=== PATIENT | male | born 2000 | race Caucasian/White ===

== ENCOUNTER 2018-04-14 22:33 | Emergency (ER) | payer OTHER ==
[~2018-04-14] VITALS: Ht 175.3 cm; Wt 71.7 kg
--- NOTE | 2018-04-14 23:19 | ED PSYCHIATRIC COMPLAINT ---
History of Present Illness General Chief Complaint: Psychiatric Related Complaint Stated Complaint: PT IS POSTIVE FOR SI Source: patient Exam Limitations: no limitations Vital Signs & Intake/Output Vital Signs & Intake/Output Vital Signs Date Time Temp Pulse Resp B/P B/P Pulse O2 O2 Flow FiO2 Mean Ox Delivery Rate 04/15 0633 98.0 76 18 112/71 98 04/15 0156 97.9 58 18 114/70 100 Room Air 04/14 2303 Room Air 04/14 2243 98.5 59 18 121/74 98 Room Air ED Intake and Output 04/15 0000 04/14 1200 Intake Total 0 Output Total Balance 0 Intake, Oral 0 Patient 158 lb Weight Weight Reported by Patient Measurement Method Allergies Coded Allergies: No Known Allergies (04/14/18) Triage Note: PT BROUGHT IN BY [facility] FOR +SI THOUGHTS. PT STATES HE WAS IN [facility] FOR SUBSTANCE ABUSE WITH COCAINE AND ALCOHOL ABUSE FOR THE PAST 3 YEARS. PT STATES HE HAS BEEN CLEAN AND AT [facility] FOR THE PAST 3X DAYS. PT DENIES ALCOHOL SEIZURE WITHDRAWALS. PT STATES LAST USE OF COCAINE WAS 3-4 DAYS PRIOR. VSS. PT STATES +SI THOUGHTS IN TRIAGE WITHOUT A PLAN. PT DENIES -HI. Triage Nurses Notes Reviewed? yes Onset: Abrupt Duration: day(s): Timing: recent history HPI: 04/14/18 17-year-old male presents to the emergency department for depression with suicidal ideation. The patient states that he's been having thoughts of hurting himself. He denies any plan. The onset of the symptoms have been for several days. He is currently a resident at [facility] where he is being treated for alcohol and cocaine dependence. (Chauncey Romero DO) Past History Travel History Traveled to [place] past 21 day No Medical History Any Pertinent Medical History? see below for history Neurological: NONE EENT: NONE Cardiovascular: NONE Respiratory: NONE Gastrointestinal: NONE Hepatic: NONE Renal: NONE Musculoskeletal: NONE Psychiatric: alcohol dependence, substance abuse Endocrine: NONE Surgical History Surgical History: none Psychosocial History What is your primary language Indonesian Tobacco Use: Current Daily Use Daily Tobacco Use Amount/Type: => 5 Cigarettes daily ETOH Use: alcoholic Illicit Drug Use: cocaine Family History Hx Contributory? No (Chauncey Romero DO) Review of Systems Review of Systems Constitutional: Denies: fever. EENTM: Reports: no symptoms. Respiratory: Reports: no symptoms. Cardiovascular: Reports: no symptoms. GI: Reports: no symptoms. Genitourinary: Reports: no symptoms. Musculoskeletal: Reports: no symptoms. Skin: Reports: no symptoms. Neurological/Psychological: Reports: no symptoms. Hematologic/Endocrine: Denies: bruising, bleeding. Immunologic/Allergic: Reports: no symptoms. (Chauncey Romero DO) Physical Exam Physical Exam General Appearance: well developed/nourished, alert, awake, anxious Head: atraumatic, normal appearance Eyes: Bilateral: normal appearance, PERRL, EOMI. Ears, Nose, Throat: normal pharynx, normal ENT inspection, hearing grossly normal Neck: normal inspection, supple, full range of motion Respiratory: normal breath sounds, chest non-tender, no respiratory distress Cardiovascular: regular rate/rhythm, edema Gastrointestinal: normal bowel sounds, soft, non-tender Extremities: normal range of motion Neurological/Psychiatric: no motor/sensory deficits, awake, alert, anxious Appearance/Memory/Insight: appropriate appearance Behavoir/Eye Contact/Speech: avoids eye contact, cooperative Thoughts/Hallucinations: normal thought pattern Skin: intact, normal color, warm/dry SAD PERSONS SAD PERSONS Response Value Male Sex? yes 1 Depression/Hopelessness? yes 2 Previous Attempts/Psych Care yes 1 Excessive Ethanol/Drug Use? yes 1 Single//? yes 1 Social Support? has support 0 Total 6 SAD PERSONS Done? yes (Chauncey Romero DO) Progress Differential Diagnosis: drug intoxication, drug withdrawal, DEPRESSION Plan of Care: Orders Procedure Date/time Status Heart Healthy Diet 04/15 B Active Continuous Observation Monitor 04/14 2326 Active ED CRISIS PSYCH CONSULT 04/14 2326 Active URINE DRUG SCREEN FOR ER ONLY 04/14 2319 Complete ETHANOL 04/14 2319 Complete COMPREHENSIVE METABOLIC PANEL 04/14 2319 Complete CBC WITHOUT DIFFERENTIAL 04/14 2319 Complete Current Medications Sig/Juan Luis Start time Last Medication Dose Stop Time Status Admin Fluoxetine HCl 10 MG DAILY 04/15 913 UNVr 04/15 (Prozac) 947 Buspirone HCl 5 MG BID 04/15 912 UNVr 04/15 (Buspar) 0948 Gabapentin 300 MG Q8 04/15 912 UNVr 04/15 (Neurontin) 0948 Nicotine 21 MG DAILY 04/15 900 UNVr 04/15 (Nicoderm) 0948 Laboratory Tests 04/15/18 0030: Anion Gap 6, Estimated GFR > 60, BUN/Creatinine Ratio 20.0, Glucose 97, Calcium 9.5, Total Bilirubin 0.5, AST 23, ALT 27, Alkaline Phosphatase 68, Total Protein 7.7, Albumin 4.9, Globulin 2.8, Albumin/Globulin Ratio 1.8, CBC w Diff NO MAN DIFF REQ, RBC 5.03, MCV 88.9, MCH 30.4, MCHC 34.2, RDW 13.5, MPV 7.9, Gran % 48.7, Lymphocytes % 44.0, Monocytes % 5.7, Eosinophils % 0.9, Basophils % 0.7, Absolute Granulocytes 4.4, Absolute Lymphocytes 4.0 H, Absolute Monocytes 0.5, Absolute Eosinophils 0.1, Absolute Basophils 0.1, Serum Alcohol < 10.0 04/15/18 0002: Urine Opiates Screen < 100, Methadone Screen < 40, Barbiturate Screen < 60, Ur Phencyclidine Scrn < 6.00, Amphetamines Screen < 100, U Benzodiazepines Scrn < 85, Urine Cocaine Screen < 50, Urine Cannabis Screen 9.20 (Chauncey Romero DO) Comments: Patient has been seen and evaluated by the clean rice broker. Patient is stable for discharge back to [facility]. [facility] has been contacted and they were arranging transport. (Jacek GAFFNEY,Srinivas Diaz) Departure Departure Condition: Stable Clinical Impression Primary Impression: Depression Secondary Impressions: Alcohol abuse, Cocaine abuse Departure Forms: Customer Survey General Discharge Information Comments The patient will have labs and urine screening done. Nicotine patch was provided gabapentin was given he is pending crisis evaluation. He will be signed out to Dr. Read at 7 AM (Chauncey Romero DO) Departure Disposition: ACUTE REHAB FACILITY Additional Instructions: Clear to return to the rehabilitation facility. (Jacek GAFFNEY,Srinivas Diaz)
[2018-04-15 00:47] LABS: ABSOLUTE BASOPHIL COUNT 0.1 /CUMM (0.0-0.2); ABSOLUTE EOSINOPHIL COUNT 0.1 /CUMM (0.0-0.7); ABSOLUTE GRANULOCYTE CT 4.4 /CUMM (1.4-6.5); ABSOLUTE MONOCYTE COUNT 0.5 /CUMM (0.10-0.60); BASOPHIL % 0.7 % (0.0-2.0); EOSINOPHIL % 0.9 % (0-5); GRANULOCYTE % 48.7 % (42.2-75.2); HEMATOCRIT 44.8 % (42-52); MEAN CORPUSCULAR HGB 30.4 PG (27.0-31.0); MEAN CORPUSCULAR HGB CONC 34.2 G/DL (33.0-37.0); MEAN CORPUSCULAR VOLUME 88.9 FL (80.0-94.0); MEAN PLATELET VOLUME 7.9 FL (7.4-10.4); PLATELET COUNT 308 /CUMM (130-400); RBC DISTRIBUTION WIDTH 13.5 % (11.5-14.5); RED BLOOD CELL CT 5.03 /CUMM (4.70-6.10)
--- NOTE | 2018-04-15 10:44 | ED PSYCH CRISIS CONSULTATION ---
Crisis Consult Basic Assessment Date of Consult: 04/15/18 Responsible Person/Accompanied By: mother Donovan Insurance Authorization: Insurance #1: Insurance name: STEFAN CHEEMA Phone number: Policy number: [id number] Group number: Authorization number: ED Provider: Patient's ED Provider: Chauncey Romero DO Primary Care Physician: Patient's PCP: Unknown PCP's Phone Number: Current Psychiatrist: Dr Kemp Chief Complaint: Psychiatric Related Depression Patient's Quote: "Honetly, I think I have made a good step forward" Present Illness: Patient is a 17 year old male who was sent to [facility] 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 Mother reported that patient had been bullied from 8th and 9th grade, and mom says that he had kind of shut her out. Patient deies ever really thinking about hurting or killing himself, but he was depressed (althougn patient did not place as much emphasis on the bully situation as mom had). Patient did say that he did write a suicide note "in case I might need it one day". Patient describes his life as mostly pleasant, and added that he tended to hang around with other "downtrodden people in high school". Patient states that the work ewas not that difficult, but thayt he did not try very hard. At this point in life patient indicates that he wished that he had applied himself more. 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 Patient knows that he can work hard, and now would like to go on in school, and do something worthwhile that he would enjoy. Patient is fully alert and orinted x 3. Patient is completely future oriented and denoies being suicidal or homicidal. Patient states that he is commited to getting clean, and being more productive with life, Patient said that he wanted to call his mother if he is ablke to get back to [employer]. Patient is on new medication prescribed by Dr Kemp and is optimistic, but it has only been a few days, so it is impossible to assess. Patient's Address: [address] [place] [address] Other Phone Number: Who Do You Live With? Family Family/Informants Interviewed: mother Nicolasa Blancas Allergies - Coded Allergies: No Known Allergies (04/14/18) Laboratory Results: Laboratory Tests 04/15/18 0030: Anion Gap 6, Estimated GFR > 60, BUN/Creatinine Ratio 20.0, Glucose 97, Calcium 9.5, Total Bilirubin 0.5, AST 23, ALT 27, Alkaline Phosphatase 68, Total Protein 7.7, Albumin 4.9, Globulin 2.8, Albumin/Globulin Ratio 1.8, CBC w Diff NO MAN DIFF REQ, RBC 5.03, MCV 88.9, MCH 30.4, MCHC 34.2, RDW 13.5, MPV 7.9, Gran % 48.7, Lymphocytes % 44.0, Monocytes % 5.7, Eosinophils % 0.9, Basophils % 0.7, Absolute Granulocytes 4.4, Absolute Lymphocytes 4.0 H, Absolute Monocytes 0.5, Absolute Eosinophils 0.1, Absolute Basophils 0.1, Serum Alcohol < 10.0 04/15/18 0002: Urine Opiates Screen < 100, Methadone Screen < 40, Barbiturate Screen < 60, Ur Phencyclidine Scrn < 6.00, Amphetamines Screen < 100, U Benzodiazepines Scrn < 85, Urine Cocaine Screen < 50, Urine Cannabis Screen 9.20 Past History Past Medical History Neurological: NONE EENT: NONE Cardiovascular: NONE Respiratory: NONE Gastrointestinal: NONE Hepatic: NONE Renal: NONE Musculoskeletal: NONE Psychiatric: alcohol dependence, substance abuse Endocrine: NONE Past Surgical History Surgical History: 1 Psychosocial History Strengths/Capabilities: intelligent has family suport Physical Limitations (Interventions): none Psychiatric Treatment History Psych Treatment Psychiatric Treatment Yes Inpatient Treatment No Location of Treatment [facility] Reason for Treatment depression Dates of Treatment 2017 Response to Treatment fair Diagnosis by History: depression Substance Use/Abuse History Drug Use/Abuse 1 Substances Used/Abused Yes Substance Used/Abused Alcohol First Use 15 Last Used recent How much used/taken buzz How often several x /week For how long 4 years Route of use coccaine Drug Use/Abuse 2 Substances Used/Abused Yes Substance Used/Abused Cocaine First Use year ago Last Used 5 days ago How much used/taken varied How often pretty much daily For how long almost a year. Route of use snort Substance Abuse Treatment Substance Abuse Treatment Past Substance Abuse [place] No Comments: patient now motivated for treatment Current Mental Status Mental Status Orientation: Current situation, Person, Place, Situation Affect: WNL Speech: WNL Neuro-vegetative: Sleep Disturbance, WNL Appearance Appearance- Dress/Hygiene: neat in hospital attire Behaviors Thought Process: Logical/Rational Thought Content: WNL Memory: WNL Insight: Fair SI/HI Risk Assessment Past Suicidal Ideation/Attempts Yes Current Suicidal Ideation/Att No Past Homicidal Ideation/Att: No Current Homicidal Ideation/Attempts No Degree of Intent: None Risk Factors: age (under 24/over 65), high anxiety/distress, substance abuse, male Lethality Ratin (mild) PTSD Checklist PTSD Done? pt unable to participate ED Management Sitter: Yes Restraints: No DSM5/PS Stressors/Medical Prob Diagnosis' (DSM 5, Stressors, Medical): Unspecified Depressive Disorder F 32.9 Unspecified Anxiety d/.o F 41.9 Cocaine Use disorder F 14.20 Alcohol Use disorder F 10.20 Current GAF: 44 Comments: patient motivated to move forward No S.I. Departure Disposition Psych Medical Clearance Date: 04/15/18 Medically Cleared at: 0910 Time Started: 914 Time Ended: 999 Psychiatrist Consulted: Loree Time Disposition Established: 1035 Plan for Disposition - Modality: Inpatient Detoxification Follow-up Appt Date: 04/15/18 Rationale for Disposition: Patient is fully motivated for detox and treatment. Patient is focused on positive, and no S I. Additional Instructions: Patient Referrals Unknown (PCP/Family)
[2018-04-15 11:44] VITALS: BP 151/87
[2018-04-15] MEDS ORDERED: GABAPENTIN300 M2 PO (12:35)
[2018-04-15] MEDS ORDERED: FLUOXETINE HCL10 M2 PO (12:36)
[2018-04-15] MEDS ORDERED: BUSPIRONE HCL5 M1 PO (12:36)
== END 2018-04-15 13:38 ==
LOC: ERH 22:33
PROVIDERS: Emergency Medicine
DX: F32.9 Major depressive disorder, single episode, unspecified (principal); F10.10 Alcohol abuse, uncomplicated; F14.10 Cocaine abuse, uncomplicated
CPT/HCPCS: 80307; G0463; G0480